=== PATIENT | female | born 1985 | race Caucasian/White ===

== ENCOUNTER 2022-02-03 10:05 | Inpatient (IN) ==
[2022-02-03] MEDS ORDERED: Lactated Ringers 1000 ml BAG 1,000 ML IV ONE (10:59)
[2022-02-03] MEDS ORDERED: Buffered Lidocaine 1% SYRIN 1 ml INTRADERM ONE (10:59)
[2022-02-03] MEDS ORDERED: miSOPROStol 100 mcg TAB VAGINAL ONE ×3 (10:59→19:14)
[2022-02-03] MEDS ORDERED: Lactated Ringers 1000 ml BAG 1,000 ML IV SCH (11:00)
[2022-02-03 12:20] LABS: Urine Benzodiazepine Screen None Detected (None Detect); Urine Cannabinoids Screen None Detected (None Detect); Urine Opiates Screen None Detected (None Detect)
[2022-02-04 00:23] LABS: ABS Basophils 0.1 10^3/ul (0-0.2); ABS Eosinophils 0.2 10^3/ul (0-0.6); ABS Lymphocytes 3.3 10^3/ul (1.0-4.8); ABS Monocytes 0.9 10^3/ul (0-0.8); ABS Neutrophils 8.9 10^3/ul (1.5-7.7); Eosinophil % 1.2 %; Hematocrit 36 % (35-47); Hemoglobin 11.5 g/dL (12.0-16.0); Lymphocyte % 24.8 %; Mean Corpuscular HGB Conc 32 g/dL (31-36); Mean Corpuscular Hemoglobin 27 pg (27-31); Mean Corpuscular Volume 84 fL (80-97); Mean Platelet Volume 9.2 fL (7.4-10.4); Platelet Count 327 10^3/uL (150-450); Red Cell Distribution Width 14 % (10-15); White Blood Count 13.4 10^3/uL (3.5-10.8)
[2022-02-04] MEDS ORDERED: Lidocaine/Epinephrin 1.5%/200 5 ML AMP INJ ONE (04:26)
[2022-02-04] MEDS ORDERED: OBEPIDURAL (200 ML) 200 ML EPIDURAL ONE (04:29)
[2022-02-04] MEDS: Phenylephrine 40 mcg/mL 10mL (400mcg) SYRINGE IV PUSH PRN ×2 (05:19→05:41)
[2022-02-04] MEDS ORDERED: Lactated Ringers 1000 ml BAG 1,000 ML IV ONE (05:31)
[2022-02-04] MEDS ORDERED: Phenylephrine 40 mcg/mL 10mL (400mcg) SYRINGE IV PUSH PRN (05:31)
[2022-02-04] MEDS ORDERED: Sodium Citrate/Citric Acid LIQ 15 ML UDC PO PRN (05:31)
[2022-02-04] MEDS ORDERED: Lactated Ringers 1000 ml BAG 500 ML IV PRN (05:31)
[2022-02-04] MEDS ORDERED: Lactated Ringers 1000 ml BAG 1,000 ML IV SCH ×3 (06:00→23:00)
[2022-02-04] MEDS ORDERED: OBEPIDURAL (200 ML) 200 ML EPIDURAL SCH (06:00)
[2022-02-04 08:36] LABS: Urine Appearance Clear; Urine Bilirubin Negative (Negative); Urine Blood 2+ (Negative); Urine Color Colorless; Urine Glucose Negative (Negative); Urine Ketones Negative (Negative); Urine Nitrite Negative (Negative); Urine Protein Negative (Negative); Urine Specific Gravity 1.001 (1.002-1.030); Urine Urobilinogen Negative (Negative)
[2022-02-04 08:39] LABS: Urine Bacteria 1+ (Absent); Urine Red Blood Cell Trace(0-2/hpf) (Absent); Urine Squamous Epithelial Cell Present (Absent); Urine White Blood Cell Trace(0-5/hpf) (Absent)
[2022-02-04] MEDS ORDERED: Oxytocin in LR 20 UNITS/1,000 ML BAG IVPB SCH ×2 (14:00→23:00)
[2022-02-04] MEDS ORDERED: Dibucaine 1% OINT 28.35 GM TUBE PR PRN (22:31)
[2022-02-04] MEDS ORDERED: ceFAZolin 1 GM ADVAN 1 GM in NS 0.9% 50 ML 50 ML IVPB ONE (22:31)
[2022-02-04] MEDS ORDERED: Glycerin ADULT 2.4 gm SUPP PR PRN (22:31)
[2022-02-04] MEDS: Witch Hazel PAD JAR TOPICAL PRN (23:39)
[2022-02-05] MEDS ORDERED: Lidocaine 1% MPF 5 ML VIAL ONE (03:07)
[2022-02-05 06:46] LABS: ABS Lymphocytes 1.9 10^3/ul (1.0-4.8); ABS Neutrophils 18.2 10^3/ul (1.5-7.7); Hematocrit 32 % (35-47); Hemoglobin 10.5 g/dL (12.0-16.0); Mean Corpuscular HGB Conc 33 g/dL (31-36); Mean Corpuscular Hemoglobin 28 pg (27-31); Mean Corpuscular Volume 84 fL (80-97); Platelet Count 306 10^3/uL (150-450); Red Blood Count 3.77 10^6 /uL (3.70-4.87); Red Cell Distribution Width 14 % (10-15); White Blood Count 21.1 10^3/uL (3.5-10.8)
[2022-02-05] MEDS: Witch Hazel PAD JAR TOPICAL PRN (20:03)
[2022-02-06 08:44] VITALS: BP 118/79
== END 2022-02-06 13:55 | disposition home or self-care (01) | DRG 806 ==
LOC: MCHOBOUT 10:05 → MCHOB 10:57
PROVIDERS: ADMIT Obstetrics & Gynecology; ATTEND Obstetrics & Gynecology